=== PATIENT | male | born 1985 | race Caucasian/White ===

== ENCOUNTER 2017-09-02 16:53 | Emergency (ER) | payer BC, OTHER ==
[2017-09-02 17:25] VITALS: PULSE 80; RESP 16
--- NOTE | 2017-09-02 17:55 | ED ---
General Adult HPI - General Chief complaint: Skin/Abscess/Foreign Body Stated complaint: Ingrown hair on neck Time Seen by Provider: 09/02/17 17:30 Source: patient, RN notes reviewed Mode of arrival: ambulatory Limitations: no limitations - History of Present Illness Initial comments: 32-year-old male presents to the emergency department with a chief complaint of abscess under the chin. He states it starts his ingrown hair and has become more swollen. He states it's tender to touch. He denies any history of MRSA. He denies any fever or chills. He denies any difficulty opening or closing the mouth. He was concerned due to his continued symptoms so he thought that he should be evaluated. Patient states he is not currently having any other symptoms at this time.Patient denies any recent fever, chills, shortness of breath, chest pain, back pain, abdominal pain, nausea vomiting, numbness or tingling, dysuria or hematuria, constipation or diarrhea, headaches or visual changes, or any other current symptoms. - Related Data Previous Rx's Medication Instructions Recorded Sulfamethox-Tmp 800-160Mg [Bactrim 2 each PO Q12HR #56 tab 09/02/17 DS 800-160 mg] Allergies Allergy/AdvReac Type Severity Reaction Status Date / Time No Known Allergies Allergy Verified 09/02/17 17:25 Review of Systems ROS Statement: Those systems with pertinent positive or pertinent negative responses have been documented in the HPI. ROS Other: All systems not noted in ROS Statement are negative. Past Medical History Past Medical History: Hypertension History of Any Multi-Drug Resistant Organisms: None Reported Past Surgical History: Back Surgery, Orthopedic Surgery, Tonsillectomy Past Psychological History: No Psychological Hx Reported Smoking Status: Current every day smoker Past Alcohol Use History: None Reported Past Drug Use History: None Reported General Exam Limitations: no limitations General appearance: alert, in no apparent distress Head exam: Present: other (Patient appears to have abscess in the underside of the chin.) ENT exam: Present: normal exam, mucous membranes moist Neck exam: Present: normal inspection. Absent: tenderness, meningismus, lymphadenopathy Respiratory exam: Present: normal lung sounds bilaterally. Absent: respiratory distress, wheezes, rales, rhonchi, stridor Cardiovascular Exam: Present: regular rate, normal rhythm, normal heart sounds. Absent: systolic murmur, diastolic murmur, rubs, gallop, clicks Neurological exam: Present: alert, oriented X3 Psychiatric exam: Present: normal affect, normal mood Skin exam: Present: warm, dry, intact, normal color. Absent: rash Course Vital Signs 09/02/17 17:23 Temperature 97.8 F Pulse Rate 80 Respiratory 16 Rate Blood Pressure 144/75 O2 Sat by Pulse 97 Oximetry Procedures - Procedures Initial comment: Procedure: Incision and drainage The skin overlying the abscess was prepped with Betadine, and anesthetized with 1% lidocaine without epinephrine. A #11 scalpel was then used to incise the abscess. Some purulent material was then extracted from the lesion. Wound culture obtained. Gauze dressing placed on top, The patient tolerated the procedure well. Medical Decision Making - Medical Decision Making 32-year-old male presents for abscess under the chin. This time it was drained. We did discuss group home. We discussed return parameters. We discussed all questions. We did discuss follow-up. We did discuss additional group home. Patient is in agreement this plan. At this time the patient will be discharged. Disposition Clinical Impression: Abscess of chin Disposition: HOME SELF-CARE Condition: Stable Instructions: Abscess (ED), Abscess Incision and Drainage (ED) Additional Instructions: Please use medication as discussed. Please follow up with family doctor if symptoms have not improved over the next two days. Please return to the emergency room if your symptoms increase or worsen or for any other concerns. Prescriptions: Sulfamethox-Tmp 800-160Mg [Bactrim DS 800-160 mg] 2 each PO Q12HR #56 tab Referrals: Brandy Hernandez DO [Primary Care Provider] - 1-2 days Time of Disposition: 17:55
[2017-09-02 18:14] VITALS: BP 138/78; TEMP 98.6
== END 2017-09-02 18:10 | disposition home or self-care (01) ==
LOC: EC 16:53
DX: L02.01 Cutaneous abscess of face (principal); F17.200 Nicotine dependence, unspecified, uncomplicated
CPT/HCPCS: 10060; 87070; 87205; 99283

== ENCOUNTER → 2021-03-05 | Outpatient (CLI) | payer OTHER ==
--- NOTE | 2021-03-05 08:03 | MR ---
MRI CERVICAL SPINE: CLINICAL HISTORY: Cervicalgia. Headache with neck pain and tightness into right arm and fingers TECHNIQUE: Multiplanar, multisequence imaging of the cervical spine is performed without IV contrast. COMPARISON: None. FINDINGS: Sagittal images of the cervical spine show the craniocervical junction to appear within nor mal limits. The cervical and upper thoracic spinal cord is normal in caliber and signal. Vertebral alignment is straightened. The vertebral body and intravertebral disk heights are normal. The bone marrow signal intensity is within normal limits. Axial images show C2-C3 and C3-C4 levels to appear within normal limits. Axial images at C4-C5 level show broad-based left paracentral disc protrusion on axial image 43 effac ing anterolateral thecal sac and causing asymmetric mild left-sided neural foraminal narrowing. Axial images at C5-C6 level show focal left paracentral disc protrusion mildly effacing the anterior thecal sac, patent bilateral neural foramina. Axial images at C6-C7 level show multiple prominent broad-based right paracentral/foraminal disc prot rusion effacing anterolateral thecal sac up to ventral surface of spinal cord seen best sagittal imag e 10, this disc herniation has slight inferior extrusion measuring 12 mm craniocaudal diameter. Axial images show disc herniation measuring 11 mm transversely on axial image 19 by roughly 4 mm AP diamet er. This is causing severe right-sided neural foraminal narrowing. Slight flattening of the ventral m argin of the right aspect spinal cord without abnormal signal noted sagittal image 9. Axial images at C7-T1 level appear within normal limits. IMPRESSION: Straightening of cervical spine with multilevel disc herniations, greatest disc herniatio n seen at C6-C7 level likely accounting for patient's right-sided radiculopathy type symptoms. Furthe r details as discussed above.
== END | disposition home or self-care (01) ==
LOC: RADMRIMAIN 05:46
PROVIDERS: ATTEND Family Medicine
DX: M50.123 Cervical disc disorder at C6-C7 level with radiculopathy (principal); M99.71 Connective tissue and disc stenosis of intervertebral foramina of cervical region
CPT/HCPCS: 72141

== ENCOUNTER 2021-08-11 09:55 | Day surgery (SDC) | payer OTHER ==
[2021-08-09 17:13] VITALS: BMI 37.5
[~2021-08-11 09:55] MED LIST: DEXAMETHASONE SOD PHOSPHATE 4 MG/ML 1 ML VIAL IV ONE; HYDROmorphone 0.5 MG/0.5 ML SYRINGE IVP PRN; LACTATED RINGERS 1,000 ML IV SCH; LIDOCAINE 1% (10MG/ML) FOR IV START INTRADERMA PRN; ONDANSETRON 4 MG/2 ML VIAL IVP ONE; SCOPOLAMINE 1.5MG/72HR PATCH TRANSDERM ONE; ceFAZolin 1,000 MG in SODIUM CHLORIDE 0.9% IRRIGATIO 1,000 ML IRRIGATION PRN
[2021-08-11] MEDS ORDERED: ROCURONIUM 10 MG/ML (5 ML VIAL) IV ONE (13:24)
[2021-08-11] MEDS ORDERED: PROPOFOL 10 MG/ML 20 ML VIAL IV ONE (13:24)
[2021-08-11] MEDS ORDERED: HYDROmorphone (PF) 1 MG/ML ONE (13:24)
[2021-08-11] MEDS ORDERED: DEXAMETHASONE SOD PHOSPHATE 10 MG/ML 1 ML VIAL ONE (13:24)
[2021-08-11] MEDS ORDERED: fentaNYL (PF) 50 MCG/ML 2 ML AMP ONE (13:24)
[2021-08-11] MEDS ORDERED: NEOSTIGMINE 1 MG/ML 10 ML VIAL ONE (13:24)
[2021-08-11] MEDS ORDERED: GLYCOPYRROLATE 0.2 MG/ML 2 ML VIAL ONE (13:24)
[2021-08-11] MEDS ORDERED: LIDOCAINE 1% INJ 10MG/ML (20 ML MDV) ONE (13:24)
[2021-08-11] MEDS ORDERED: SUCCINYLCHOLINE CHLORIDE VIAL 200 MG/10 ML VIAL IV ONE (13:24)
[2021-08-11] MEDS ORDERED: MIDAZOLAM 2 MG/2 ML VIAL ONE (13:24)
[2021-08-11] MEDS ORDERED: GELATIN SPONGE,ABSORB (LARGE) 1 EACH SPONGE MISCELLANE ONE (13:54)
[2021-08-11] MEDS ORDERED: BUPIVACAINE (PF) 0.25% 30 ML VIAL SQ ONE ×2 (13:54)
[2021-08-11] MEDS ORDERED: THROMBIN (BOVINE) 5,000 UNIT VIAL TOPICAL ONE (13:54)
[2021-08-11] MEDS ORDERED: LACTATED RINGERS 1,000 ML IV ONE (15:15)
--- NOTE | 2021-08-11 15:33 | XR ---
EXAMINATION TYPE: XR cervical spine 1V DATE OF EXAM: 08/11/2021 COMPARISON: 08/11/2021 earlier exam INDICATION: Cervical spine hardware placement TECHNIQUE: Single lateral cervical spine FINDINGS: Anterior cervical fusion is evident at C5 and C6 and appears to extend towards C7. Endotracheal tube is present. IMPRESSION: 1. Interval anterior cervical fusion
--- NOTE | 2021-08-11 15:35 | XR ---
EXAMINATION TYPE: XR cervical spine 1V DATE OF EXAM: 08/11/2021 COMPARISON: None HISTORY: Needle placement TECHNIQUE: Crosstable lateral cervical spine was obtained in the operative FINDINGS: There is a needle directed to the C5-6 disc level. Tracheostomy tube is anterior. IMPRESSION: 1. Intraoperative evaluation of the needle directed to the C5-6 level.
[2021-08-11] MEDS ORDERED: HYDROmorphone 1 MG/ML 1 ML SYRINGE IVP PRN (15:44)
[2021-08-11] MEDS ORDERED: ONDANSETRON 4 MG/2 ML VIAL IVP PRN (15:44)
[2021-08-11] MEDS ORDERED: BENZOCAINE/MENTHOL LOZENG 1 EACH LOZENGE MUCOUS MEM PRN (15:44)
[2021-08-11] MEDS ORDERED: CYCLOBENZAPRINE 10 MG TAB PO PRN (15:44)
[2021-08-11] MEDS ORDERED: HYDROcodone/APAP 5-325MG 1 EACH TAB PO PRN (15:44)
[2021-08-11] MEDS ORDERED: SODIUM CHLORIDE 0.9% 1,000 ML IV SCH (15:45)
[2021-08-11] MEDS ORDERED: ACETAMINOPHEN TAB 500 MG TAB PO PRN (15:45)
--- NOTE | 2021-08-11 15:50 | P.OP ---
Date of Procedure: 08/11/21 Preoperative Diagnosis: Herniated nucleus pulposis C5 6 C6 7, upper extremity radiculopathy, upper extremity weakness, neck pain, degenerative disc disease C5 6 C6 7, cervical stenosis Postoperative Diagnosis: Same Anesthesia: GETA Pathology: none sent Condition: stable Disposition: PACU Description of Procedure: BRIEF OPERATIVE NOTE Preoperative Diagnosis:Herniated nucleus pulposis C5 6 C6 7, upper extremity radiculopathy, upper extremity weakness, neck pain, degenerative disc disease C5 6 C6 7, cervical stenosis Postoperative Diagnosis:Herniated nucleus pulposis C5 6 C6 7, upper extremity radiculopathy, upper extremity weakness, neck pain, degenerative disc disease C5 6 C6 7, cervical stenosis Procedure: Anterior cervical decompression with discectomy and fusion C5 6 C6 7 Placement of interbody graft C5 6 C6 7 Application of anterior cervical plate C5 6 and 7 Surgeon: Dr. Cordova Packing Machine Feeder: Yrn Alvarez is present throughout the entire the case persistence during positioning, dissection, exposure, visualization, and all crucial elements of the case as well as closure. Anesthesia: General anesthesia Estimated blood loss: Approximately 100 mL Complications: None apparent Components implanted: K2M [place] anterior cervical plate system with screws and ViKos interbody bone graft with 1 mL of DBX bone putty Disposition: To recovery room in good stable condition. OPERATIVE INDICATIONS The patient has had significant issues in their neck and upper extremities. He is not having worsening pain on his found have a large disc herniation at C6 7 was severe disc degeneration and stenosis both at C5 6 and at C6 7. His imaging correlated well with his neck and his upper extremity symptoms. The patient has been through conservative treatment. He is not having any benefit despite aggressive conservative treatment. We discussed various treatment options including surgery, and the patient wishes to proceed with surgery We discussed the risk, patient's alternatives and benefits of surgery including but not limited to, risk of bleeding risk of infection, risk of need for further surgery, risk of decreased, loss of motion, muscle function, malunion nonunion, hardware failure, nerve damage, paralysis, heart attack, and . OPERATIVE SUMMARY After discussing all the risks, patient alternatives and benefits at length, the patient elected to proceed with surgical intervention, signed informed consent, and presented for their procedure. The patient was seen and examined in the preoperative holding area and the surgical site was marked. The patient was given antibiotics and brought to the operating room. The patient was positioned on the operating room table in a supine position being careful to pad any bony prominences and pressure points. The patient was sedated and intubated by anesthesia in standard fashion. Once the airway and C- spine were stabilized the patient's arms were padded and tucked at her side, with her shoulders gently taped. The head was placed in a donut pad with the neck in good neutral alignment and position. We were careful to maintain the patient's cervical spine and good neutral alignment and position throughout. The patient was prepped and draped in a normal standard fashion. An appropriate timeout and keystone protocol performed. We were able to proceed with the surgery. The local wound area was infiltrated with local anesthetic. An incision was made transversely approximately 2-1/2 cm over the appropriate levels at C6. Dissection was taken down subcutaneously to the level of the platysma which was split in line with its fibers. Dissection was taken with a carotid approach, with the trachea and esophagus medial and the carotid sheath laterally. We dissected down to the anterior surface of the vertebral bodies. Intraoperative x-ray was taken which showed a marker at the appropriate level at C5 6. With the appropriate level positively confirmed, we were able to proceed with discectomy at the appropriate levels. All of the operative levels were exposed appropriately. The patient had all their twitches back, and there was no evidence of recurrent laryngeal issue. The wound was copiously irrigated and suctioned dry as had been done periodically throughout the case. At the appropriate level/levels, starting at C6 7 and removing the C5 6 I established an annulotomy with an 11 blade scalpel. A discectomy was performed with a combination of pituitary rongeurs, curettes, a high-speed bur, and Kerrison rongeurs. The posterior longitudinal ligament was taken down as were any posterior osteophytes. There is significant disc herniation particular at C6 7 on the right. This was able to be removed. At C5 6 there is significant broad- based disc herniation which was removed as well. This gave good central and bilateral foraminal decompression. There is no evidence of any dural tear or leak. The endplates were prepared with a high-speed bur. With the endplates in good parallel position, I was able to size for the appropriate size interbody graft. The wound was irrigated and suctioned dry the graft was prepared and malleted into position. It had good alignment and position with the anterior surface flush with the anterior surface of the vertebral bodies at C5 6 and 7. This was done similarly the appropriate levels. With the grafts intact, I was able to measure and contour and appropriate sized plate. The plate was positioned at the midline over the appropriate levels of C5 6 and 7. Screw holes were established with a hand drill and drill guide. Screws were placed in good alignment and position with excellent bony purchase. They were seated under the locking device. The construct was checked and found to be stable. Intraoperative x-ray was taken which showed good alignment and position of the implants at the appropriate levels. There was no evidence of any dural tear or leak. Good hemostasis was maintained. The wound was copiously irrigated and suctioned dry as had been done periodically throughout the case. The platysma was closed with absorbable suture. The subcutaneous tissue was closed. The subcuticular tissue was closed with absorbable suture. The wound was cleaned and dried and dressed appropriately. A soft cervical collar was placed appropriately. The patient was woken up by anesthesia, extubated, transferred back gently to their hospital bed and brought to the recovery room in good stable condition. The patient will be admitted to the hospital for appropriate postoperative care, medical management and monitoring. We will continue to follow them closely about the postoperative course.
[2021-08-11 15:53] VITALS: TEMP 97.2
[2021-08-11 16:52] VITALS: RESP 16
[2021-08-11 17:32] VITALS: BP 126/63; PULSE 76
[2021-08-12] MEDS ORDERED: LOSARTAN 25 MG TAB PO SCH (09:00)
[2021-08-12] MEDS ORDERED: NON FORMULARY DRUG (Fenofibrate Nanocrystallized [Fenofibrate] 145 MG Tablet) PO SCH (09:00)
== END 2021-08-11 18:05 | disposition home or self-care (01) ==
LOC: OR 09:55
PROVIDERS: ATTEND Orthopaedic Surgery Orthopaedic Surgery of the Spine
DX: M51.9 Unspecified thoracic, thoracolumbar and lumbosacral intervertebral disc disorder (principal); M50.122 Cervical disc disorder at C5-C6 level with radiculopathy; M48.02 Spinal stenosis, cervical region; M25.78 Osteophyte, vertebrae; I10 Essential (primary) hypertension; E78.5 Hyperlipidemia, unspecified; Z97.3 Presence of spectacles and contact lenses; Z98.890 Other specified postprocedural states; Z87.891 Personal history of nicotine dependence; Z82.49 Family history of ischemic heart disease and other diseases of the circulatory system; Z79.1 Long term (current) use of non-steroidal anti-inflammatories (NSAID); Z79.899 Other long term (current) drug therapy
CPT/HCPCS: 86900; 86901; 86850; 87635; 72020; 22551; 22552; 22845; 20931; C1713 ×2; C1762 ×2; J2250; J0330; J1100; J2710; J0690; J2405; J2001; J3010; J1170; J2704